=== PATIENT | female | born 1990 | race Two or more races ===

== ENCOUNTER → 2022-04-15 | Outpatient (CLI) | payer MEDICAID ==
[~2022-04-15] VITALS: Ht 175.3 cm; Wt 91.6 kg
== END | disposition home or self-care (01) ==
LOC: Rad HDHVI 13:27
PROVIDERS: ATTEND Internal Medicine Cardiovascular Disease
DX: I51.9 Heart disease, unspecified (principal); I10 Essential (primary) hypertension; E11.9 Type 2 diabetes mellitus without complications; E78.5 Hyperlipidemia, unspecified; F17.210 Nicotine dependence, cigarettes, uncomplicated; Z82.49 Family history of ischemic heart disease and other diseases of the circulatory system
CPT/HCPCS: 78452; 93017; 96374; A9500

== ENCOUNTER → 2022-05-08 | Outpatient (CLI) | payer MEDICAID | END | disposition home or self-care (01) | LOC: Rad HDHVI 15:22 | PROVIDERS: ATTEND Internal Medicine Cardiovascular Disease | DX: I10 Essential (primary) hypertension (principal) | CPT/HCPCS: 93306 ==

== ENCOUNTER → 2022-07-22 | Outpatient (CLI) | payer MEDICAID ==
[~2022-07-22] MED LIST: AML5T PO; FLUO-125 PO; LOSA-69 PO; LOXA25CA PO; METF-370 PO; [UNRECOGNIZED DRUG - CODE] PO
[2022-07-22 11:10] VITALS: BP 134/78
[2022-07-22 11:32] VITALS: BP 122/72
[2022-07-22 12:28] LABS: Basophils # (auto) 0.1 10 ^3/uL (0-0.2); Basophils % (auto) 0.9 % (0.0-2.0); Eosinophils # (auto) 0.2 10 ^3/uL (0-0.8); Hematocrit 41.5 % (41.0-53.0); Hemoglobin 13.6 g/dL (13.5-17.5); Lymphocytes # (auto) 1.9 10 ^3/uL (0.4-5.4); Lymphocytes % (auto) 15.9 % (10.0-50.0); Mean Corpuscular Hemoglobin 28.1 pg (28.0-32.0); Mean Corpuscular Hgb Conc. 32.9 g/dL (32.0-36.0); Mean Corpuscular Volume 85.5 fL (80.0-100.0); Monocytes % (auto) 8.4 % (0.0-12.0); Neutrophils # (auto) 8.7 10 ^3/uL (1.6-8.6); Neutrophils % (auto) 72.8 % (37.0-80.0); Nucleated Red Blood Cells % 0.1 %; Red Blood Cells 4.85 10^6/uL (4.5-5.90)
[2022-07-22 12:42] LABS: INR 0.92 (0.9-1.15); Partial Thromboplastin Time 36.2 sec (24.6-33.4)
[2022-07-22 12:46] LABS: BUN/Creatinine Ratio 11.8; Calcium 9.5 mg/dL (8.5-10.1); Potassium 3.9 mmol/L (3.5-5.1)
== END | disposition home or self-care (01) ==
LOC: Rad HDHVI 10:54 → EDSEX 10:54
PROVIDERS: ATTEND Internal Medicine Cardiovascular Disease
DX: Z01.818 Encounter for other preprocedural examination (principal); R94.31 Abnormal electrocardiogram [ECG] [EKG]; M47.814 Spondylosis without myelopathy or radiculopathy, thoracic region; R79.1 Abnormal coagulation profile
CPT/HCPCS: 36415; 71046; 80048; 85025; 85610; 85730; 93005; G0463

== ENCOUNTER 2022-07-24 07:49 | Day surgery (SDC) | payer MEDICAID ==
[2022-07-24] VITALS (9 sets, daily range): BP systolic 106–128; BP diastolic 72–84
[~2022-07-24] VITALS: Ht 175.3 cm; Wt 90.7 kg
[2022-07-24] MEDS ORDERED: ANGIOMAX 250 MG VIAL IV ONE (13:33)
[2022-07-24] MEDS ORDERED: fentaNYL CITRATE 100 MCG/2 ML VL ONE (13:33)
[2022-07-24] MEDS ORDERED: SODIUM CHL 0.9% 0 ML ONE (13:34)
[2022-07-24] MEDS ORDERED: MIDAZOLAM HCL 2MG/2ML 2ml VIAL (1mg/ml) ONE (13:34)
[2022-07-24] MEDS ORDERED: LIDOCAINE 2%HCL (LOCAL ANESTH.) INJ 20ML MDV ONE (13:37)
[2022-07-24] MEDS ORDERED: IOHEXOL 350 MG/ML 100ML IJ ONE (13:37)
== END 2022-07-24 16:07 | disposition home or self-care (01) ==
LOC: EDSEX → CATH 07:49
PROVIDERS: ATTEND Internal Medicine Cardiovascular Disease
DX: R07.89 Other chest pain (principal); I11.0 Hypertensive heart disease with heart failure; I50.1 Left ventricular failure, unspecified; E78.5 Hyperlipidemia, unspecified; E11.21 Type 2 diabetes mellitus with diabetic nephropathy; E11.40 Type 2 diabetes mellitus with diabetic neuropathy, unspecified; E11.51 Type 2 diabetes mellitus with diabetic peripheral angiopathy without gangrene; F17.200 Nicotine dependence, unspecified, uncomplicated; Z20.822 Contact with and (suspected) exposure to COVID-19
CPT/HCPCS: 93458; C1760; C1894; J2250; J3010; J7030; Q9967; U0003; 99152; 99153